=== PATIENT | male | born 1965 | race Caucasian/White ===

== ENCOUNTER 2020-04-27 17:23 | Inpatient (IN) ==
[2020-04-27] MEDS ORDERED: Naloxone 0.4 MG/ML INJ IVP PRN (20:41)
[2020-04-27] MEDS ORDERED: Ondansetron 4 MG/2 ML VIAL IVP PRN (20:41)
[2020-04-27] MEDS ORDERED: *HR* Heparin 5,000 UNIT/ML VIAL IVP ONE (20:46)
[2020-04-27] MEDS ORDERED: *HR* LORazepam 2 MG/ML VIAL IVP ONE (22:06)
[2020-04-27 22:09] LABS: Basophils # 0.1 K/mcL (0.0-0.2); Basophils % 0.3 %; Eosinophils # 0.1 K/mcL (0.0-0.6); Eosinophils % 0.3 %; Hematocrit 27.9 % (37.5-50.1); Hemoglobin 8.4 g/dL (12.9-16.9); Immature Granulocytes % 0.9 % (0-4); Lymphocytes # 2.9 K/mcL (0.6-4.6); Lymphocytes % 11.7 %; Mean Corpuscular HGB Conc 30.1 g/dL (31.6-35.5); Mean Corpuscular Hemoglobin 24.4 pg (28.0-33.3); Mean Platelet Volume 10.8 fL (9.4-12.4); Monocytes # 0.9 K/mcL (0.0-1.3); Monocytes % 3.7 %; Neutrophils # 20.4 K/mcL (1.6-8.9); Platelet Count 259 K/mcL (140-400); Red Blood Count 3.44 M/mcL (4.19-5.50); Red Cell Distribution Width 17.2 % (11.5-14.5); Segmented Neutrophils % 83.1 %; White Blood Count 24.6 K/mcL (4.3-11.1)
[2020-04-27 22:13] LABS: Mean Corpuscular Volume 81.1 fL (83.0-100.0)
[2020-04-27 22:15] LABS: INR 1.5; Prothrombin Time 17.3 Seconds (9.4-12.1)
[2020-04-27] MEDS: Heparin 25,000UNIT/250ML 1/2NS 25,000 UNIT/250 ML IV.SOLN IVC SCH (22:27)
[2020-04-27 22:31] LABS: Troponin I < 0.03 ng/mL (< 0.04)
[2020-04-27 22:39] LABS: C-Reactive Protein 144 mg/L (Less than 10); Chol/HDL Ratio 5.8 (0-4.9); Cholesterol 105 mg/dL (< 200); HDL Cholesterol 18 mg/dL (40-59); LDL Cholesterol,Calculated 66 mg/dL (< 100); Triglycerides 105 mg/dL (< 150)
[2020-04-27] MEDS: Nicotine 21 MG PATCH.TD24 TD SCH (22:40)
[2020-04-27] MEDS ORDERED: Ipratropium/Albuterol Neb 3 ML IH PRN (23:17)
[2020-04-27] MEDS ORDERED: Gabapentin 300 MG CAPSULE PO SCH (23:45)
[2020-04-27] MEDS ORDERED: Gabapentin 300 MG CAPSULE PO PRN (23:52)
[2020-04-27] MEDS ORDERED: Acetaminophen 325 MG TABLET PO PRN (23:54)
[2020-04-28] MEDS ORDERED: *HR* HYDROmorphone (PF) 1 MG/ML SYRINGE IVP PRN (00:06)
[2020-04-28] MEDS: Melatonin 3 MG TABLET PO PRN (01:04)
[2020-04-28 03:38] LABS: Hematocrit 25.7 % (37.5-50.1)
[2020-04-28 03:44] LABS: Bilirubin,Urine Negative (Negative); Blood,Urine Negative (Negative); Clarity,Urine Clear (Clear); Color,Urine Light-Yellow (Yellow); Glucose,Urine (UA) Normal (Normal); Ketones,Urine Negative (Negative); Leukocyte Esterase,Urine Negative (Negative); Nitrite,Urine Negative (Negative); PH,Urine 6.5 pH Units (5.0-8.0); Protein,Urine Negative (Neg-Trace); Specific Gravity,Urine 1.016 (1.010-1.025); Urobilinogen,Urine Normal (Normal)
[2020-04-28 04:00] LABS: Alanine Aminotransferase 28 Units/L (7-52); Albumin 3.2 g/dL (3.5-5.7); Alkaline Phosphatase 68 Units/L (34-104); Aspartate Amino Transferase 16 Units/L (13-39); BUN/Creatinine Ratio 22 (6-26); Bilirubin,Total 0.6 mg/dL (0.3-1.0); Blood Urea Nitrogen 12 mg/dL (6-20); Calcium 8.8 mg/dL (8.6-10.3); Carbon Dioxide 26 mEq/L (23-29); Chloride 90 mEq/L (98-107); Globulin 3.3 g/dL (2.4-3.5); Glucose 100 mg/dL (70-105); Osmolality,Calculated 266 (280-300); Potassium 3.5 mEq/L (3.5-5.1); Sodium 128 mEq/L (136-145); Total Protein 6.5 g/dL (6.4-8.9); eGFR For African Americans > 60 (> 60); eGFR For Non-African Americans > 60 (> 60)
[2020-04-28] MEDS: *HR* Heparin 5,000 UNIT/ML VIAL IVP PRN ×2 (04:12→11:45)
[2020-04-28] MEDS ORDERED: 0.9 % Sodium Chloride 1,000 ML IVC ONE (04:49)
[2020-04-28] MEDS ORDERED: Trolamine Salicylate/Aloe Vera 85 APPL/85 GM TUBE TP PRN (07:36)
[2020-04-28] MEDS ORDERED: *HR* HYDROcodone/Acet 10/325 mg TABLET PO PRN (07:36)
[2020-04-28] MEDS ORDERED: Perflutren Lipid Microsphere 1.3 ML in 0.9 % Sodium Chloride 8.7 ML IVP PRN (07:42)
[2020-04-28] MEDS: Piperacillin/Tazobactam 3.375 GM in 0.9 % Sodium Chloride Mini Bag 100 ML IVPB SCH ×3 (08:38→23:50)
[2020-04-28] MEDS: Gabapentin 300 MG CAPSULE PO SCH ×3 (08:39→20:33)
[2020-04-28] MEDS: Nicotine 21 MG PATCH.TD24 TD SCH (08:39)
[2020-04-28] MEDS: Baclofen 10 MG TABLET PO SCH ×2 (08:39→20:33)
[2020-04-28 10:27] LABS: Basophils % 0.2 %; Eosinophils # 0.1 K/mcL (0.0-0.6); Eosinophils % 0.6 %; Hematocrit 25.8 % (37.5-50.1); Hemoglobin 7.6 g/dL (12.9-16.9); Immature Granulocytes % 0.9 % (0-4); Lymphocytes % 15.4 %; Mean Corpuscular HGB Conc 29.5 g/dL (31.6-35.5); Mean Corpuscular Hemoglobin 24.1 pg (28.0-33.3); Mean Corpuscular Volume 81.9 fL (83.0-100.0); Mean Platelet Volume 11.1 fL (9.4-12.4); Monocytes # 0.9 K/mcL (0.0-1.3); Monocytes % 4.6 %; Neutrophils # 15.2 K/mcL (1.6-8.9); Platelet Count 253 K/mcL (140-400); Red Blood Count 3.15 M/mcL (4.19-5.50); Red Cell Distribution Width 17.1 % (11.5-14.5); Segmented Neutrophils % 78.3 %; White Blood Count 19.3 K/mcL (4.3-11.1)
[2020-04-28 10:47] LABS: % Iron Saturation 7 % (20-55); Iron 12 mcg/dL (65-175); Transferrin 121 mg/dL (203-362)
[2020-04-28] MEDS ORDERED: *HR* OxyCODONE/APAP 5/325 TABLET PO PRN (10:47)
[2020-04-28 11:06] LABS: Ferritin 718 ng/mL (20-250)
[2020-04-28 11:11] LABS: Folate 8.9 ng/mL (3.0-16.0)
[2020-04-28] MEDS: *HR* LORazepam 0.5 MG TABLET PO PRN (11:46)
[2020-04-28] MEDS: Sodium Ferric Gluconat/Sucrose 125 MG in 0.9 % Sodium Chloride 100 ML IVPB SCH (12:34)
[2020-04-28] MEDS: *HR* HYDROmorphone (PF) 1 MG/ML SYRINGE IVP PRN ×3 (12:34→22:33)
[2020-04-28] MEDS ORDERED: Dexamethasone 4 MG/ML VIAL IVP ONE (12:37)
[2020-04-28] MEDS: Nicotine 2 MG GUM BC PRN (12:47)
[2020-04-28] MEDS ORDERED: *HR* FentaNYL (PF) 100 MCG/2 ML VIAL ONE (14:40)
[2020-04-28] MEDS ORDERED: *HR* Midazolam HCl 2 MG/2 ML VIAL ONE (14:40)
[2020-04-28] MEDS ORDERED: *HR* Midazolam HCl 2 MG/2 ML VIAL IVP ONE (14:42)
[2020-04-28] MEDS ORDERED: *HR* FentaNYL (PF) 100 MCG/2 ML VIAL IVP ONE (14:42)
[2020-04-28 14:50] LABS: Estimated Average Glucose 134 mg/dl
[2020-04-28] MEDS: *HR* OxyCODONE/APAP 10/325 TABLET PO SCH ×2 (17:26→23:50)
[2020-04-28] MEDS: dexAMETHasone 4 MG TABLET PO SCH (20:33)
[2020-04-28] MEDS ORDERED: Gadolinium Contrast Agent (WT Based) IV PRN (21:14)
[2020-04-28] MEDS ORDERED: Isovue-370 500 ML BOTTLE IVP ONE (21:14)
[2020-04-29] MEDS: Heparin 25,000UNIT/250ML 1/2NS 25,000 UNIT/250 ML IV.SOLN IVC SCH ×2 (00:50→16:51)
[2020-04-29 01:38] LABS: Hematocrit 29.3 % (37.5-50.1); Hemoglobin 8.6 g/dL (12.9-16.9); Mean Corpuscular HGB Conc 29.4 g/dL (31.6-35.5); Mean Corpuscular Hemoglobin 24.6 pg (28.0-33.3); Mean Platelet Volume 10.6 fL (9.4-12.4); Platelet Count 280 K/mcL (140-400); Red Blood Count 3.49 M/mcL (4.19-5.50); White Blood Count 13.5 K/mcL (4.3-11.1)
[2020-04-29] MEDS: *HR* Heparin 5,000 UNIT/ML VIAL IVP PRN (01:55)
[2020-04-29 02:03] LABS: BUN/Creatinine Ratio 27 (6-26); Blood Urea Nitrogen 14 mg/dL (6-20); Calcium 8.6 mg/dL (8.6-10.3); Carbon Dioxide 27 mEq/L (23-29); Chloride 100 mEq/L (98-107); Glucose 127 mg/dL (70-105); Osmolality,Calculated 286 (280-300); Potassium 4.4 mEq/L (3.5-5.1); Sodium 137 mEq/L (136-145); eGFR For African Americans > 60 (> 60); eGFR For Non-African Americans > 60 (> 60)
[2020-04-29] MEDS: *HR* HYDROmorphone (PF) 1 MG/ML SYRINGE IVP PRN ×3 (03:10→08:02)
[2020-04-29] MEDS ORDERED: Gadolinium Contrast Agent (WT Based) IV PRN (05:25)
[2020-04-29] MEDS: *HR* OxyCODONE/APAP 10/325 TABLET PO SCH (05:29)
[2020-04-29] MEDS: *HR* LORazepam 0.5 MG TABLET PO PRN (05:54)
[2020-04-29] MEDS: Nicotine 2 MG GUM BC PRN (05:55)
[2020-04-29] MEDS: Baclofen 10 MG TABLET PO SCH ×2 (08:06→20:10)
[2020-04-29] MEDS: Nicotine 21 MG PATCH.TD24 TD SCH (08:06)
[2020-04-29] MEDS: Gabapentin 300 MG CAPSULE PO SCH ×3 (08:06→20:10)
[2020-04-29] MEDS: Piperacillin/Tazobactam 3.375 GM in 0.9 % Sodium Chloride Mini Bag 100 ML IVPB SCH ×2 (08:07→16:51)
[2020-04-29] MEDS: dexAMETHasone 4 MG TABLET PO SCH ×2 (08:08→20:10)
[2020-04-29] MEDS ORDERED: *HR* HYDROmorphone 2 MG/ML SYRINGE IVP STA (08:54)
[2020-04-29] MEDS ORDERED: *HR* HYDROmorphone (PF) 1 MG/ML SYRINGE IVP PRN (08:57)
[2020-04-29] MEDS ORDERED: dexAMETHasone 4 MG TABLET PO SCH (09:00)
[2020-04-29] MEDS ORDERED: Calcitonin-Salmon, Synthetic 400 UNIT/2 ML VIAL IM ONE (10:00)
[2020-04-29] MEDS ORDERED: Gabapentin 300 MG CAPSULE PO ONE (10:07)
[2020-04-29] MEDS ORDERED: *HR* HYDROmorphone 20 MG/20 ML PCA IVC PRN (10:10)
[2020-04-29] MEDS ORDERED: *HR* FentaNYL PATCH 50 MCG PATCH TD SCH (10:15)
[2020-04-29] MEDS: Sodium Ferric Gluconat/Sucrose 125 MG in 0.9 % Sodium Chloride 100 ML IVPB SCH (10:24)
[2020-04-29] MEDS ORDERED: *HR* HYDROmorphone (PF) 1 MG/ML SYRINGE IVP STA (10:34)
[2020-04-29] MEDS: 0.9 % Sodium Chloride 500 ML IVC SCH (12:48)
[2020-04-29] MEDS: *HR* HYDROmorphone 20 MG/20 ML PCA IVC PRN ×2 (14:36→21:09)
[2020-04-29] MEDS ORDERED: Zoledronic Acid (Zometa) 4 MG in 0.9 % Sodium Chloride 100 ML IV ONE (16:05)
[2020-04-30] MEDS: Piperacillin/Tazobactam 3.375 GM in 0.9 % Sodium Chloride Mini Bag 100 ML IVPB SCH ×3 (00:39→18:03)
[2020-04-30 04:54] LABS: Basophils % 0.1 %; Hemoglobin 8.3 g/dL (12.9-16.9)
[2020-04-30 04:56] LABS: Hematocrit 28.1 % (37.5-50.1); Immature Granulocytes % 1.8 % (0-4); Lymphocytes # 2.3 K/mcL (0.6-4.6); Lymphocytes % 8.3 %; Mean Corpuscular HGB Conc 29.5 g/dL (31.6-35.5); Mean Corpuscular Hemoglobin 24.9 pg (28.0-33.3); Mean Corpuscular Volume 84.1 fL (83.0-100.0); Mean Platelet Volume 10.7 fL (9.4-12.4); Monocytes # 0.8 K/mcL (0.0-1.3); Monocytes % 3.1 %; Platelet Count 318 K/mcL (140-400); Red Blood Count 3.34 M/mcL (4.19-5.50); Red Cell Distribution Width 17.2 % (11.5-14.5); Segmented Neutrophils % 86.7 %; White Blood Count 27.1 K/mcL (4.3-11.1)
[2020-04-30 04:59] LABS: Neutrophils # 23.5 K/mcL (1.6-8.9)
[2020-04-30 05:11] LABS: BUN/Creatinine Ratio 32 (6-26); Blood Urea Nitrogen 14 mg/dL (6-20); Calcium 8.4 mg/dL (8.6-10.3); Carbon Dioxide 24 mEq/L (23-29); Chloride 99 mEq/L (98-107); Glucose 113 mg/dL (70-105); Magnesium 2.3 mg/dL (1.6-2.6); Osmolality,Calculated 277 (280-300); Phosphorous 2.8 mg/dL (2.7-4.5); Potassium 4.7 mEq/L (3.5-5.1); Sodium 133 mEq/L (136-145); eGFR For African Americans > 60 (> 60); eGFR For Non-African Americans > 60 (> 60)
[2020-04-30] MEDS: Gabapentin 300 MG CAPSULE PO SCH ×3 (07:37→20:25)
[2020-04-30] MEDS: dexAMETHasone 4 MG TABLET PO SCH ×2 (07:38→20:25)
[2020-04-30] MEDS: Baclofen 10 MG TABLET PO SCH ×2 (07:38→20:25)
[2020-04-30] MEDS: Nicotine 21 MG PATCH.TD24 TD SCH (07:38)
[2020-04-30] MEDS: Heparin 25,000UNIT/250ML 1/2NS 25,000 UNIT/250 ML IV.SOLN IVC SCH (08:29)
[2020-04-30] MEDS ORDERED: *HR* HYDROmorphone (PF) 1 MG/ML SYRINGE IVP PRN (09:51)
[2020-04-30] MEDS ORDERED: Isovue-370 500 ML BOTTLE IVP ONE ×2 (11:16→17:49)
[2020-04-30] MEDS: *HR* LORazepam 0.5 MG TABLET PO PRN ×2 (11:30→15:38)
[2020-04-30] MEDS: *HR* HYDROmorphone 20 MG/20 ML PCA IVC PRN ×2 (11:31→20:25)
[2020-04-30] MEDS: Sodium Ferric Gluconat/Sucrose 125 MG in 0.9 % Sodium Chloride 100 ML IVPB SCH (13:19)
[2020-04-30] MEDS: 0.9 % Sodium Chloride 500 ML IVC SCH (13:23)
[2020-04-30] MEDS: Melatonin 3 MG TABLET PO PRN (20:25)
[2020-05-01] MEDS: Piperacillin/Tazobactam 3.375 GM in 0.9 % Sodium Chloride Mini Bag 100 ML IVPB SCH ×2 (00:50→08:48)
[2020-05-01] MEDS: *HR* Heparin 5,000 UNIT/ML VIAL IVP PRN (01:20)
[2020-05-01 02:12] LABS: Basophils % 0.2 %; Hemoglobin 8.1 g/dL (12.9-16.9); Lymphocytes % 8.9 %; Mean Platelet Volume 10.8 fL (9.4-12.4)
[2020-05-01 02:14] LABS: Hematocrit 27.6 % (37.5-50.1); Immature Granulocytes % 3.4 % (0-4); Lymphocytes # 1.9 K/mcL (0.6-4.6); Mean Corpuscular HGB Conc 29.3 g/dL (31.6-35.5); Mean Corpuscular Hemoglobin 25.4 pg (28.0-33.3); Mean Corpuscular Volume 86.5 fL (83.0-100.0); Monocytes # 0.8 K/mcL (0.0-1.3); Monocytes % 3.5 %; Platelet Count 308 K/mcL (140-400); Red Blood Count 3.19 M/mcL (4.19-5.50); Red Cell Distribution Width 16.9 % (11.5-14.5); White Blood Count 21.6 K/mcL (4.3-11.1)
[2020-05-01 02:15] LABS: Neutrophils # 18.1 K/mcL (1.6-8.9)
[2020-05-01] MEDS: *HR* LORazepam 0.5 MG TABLET PO PRN ×3 (02:18→17:35)
[2020-05-01 02:32] LABS: Platelet Estimate Normal (Normal)
[2020-05-01 02:33] LABS: BUN/Creatinine Ratio 28 (6-26); Blood Urea Nitrogen 12 mg/dL (6-20); Carbon Dioxide 26 mEq/L (23-29); Chloride 97 mEq/L (98-107); Glucose 91 mg/dL (70-105); Magnesium 2.5 mg/dL (1.6-2.6); Osmolality,Calculated 275 (280-300); Phosphorous 2.5 mg/dL (2.7-4.5); Potassium 4.2 mEq/L (3.5-5.1); Sodium 133 mEq/L (136-145); eGFR For African Americans > 60 (> 60); eGFR For Non-African Americans > 60 (> 60)
[2020-05-01] MEDS: Sodium Ferric Gluconat/Sucrose 125 MG in 0.9 % Sodium Chloride 100 ML IVPB SCH (08:48)
[2020-05-01] MEDS: Gabapentin 300 MG CAPSULE PO SCH ×3 (08:50→21:17)
[2020-05-01] MEDS: polyethylene glycoL 3350 17 GM POWD.PACK PO SCH (08:50)
[2020-05-01] MEDS: Nicotine 21 MG PATCH.TD24 TD SCH (08:50)
[2020-05-01] MEDS: dexAMETHasone 4 MG TABLET PO SCH ×2 (08:51→21:16)
[2020-05-01] MEDS: Baclofen 10 MG TABLET PO SCH ×2 (08:51→21:16)
[2020-05-01] MEDS: Sennosides 8.6 MG TABLET PO SCH (08:51)
[2020-05-01] MEDS: *HR* HYDROmorphone 20 MG/20 ML PCA IVC PRN ×2 (09:10→21:21)
[2020-05-01 09:30] LABS: POC Creatinine Result 1.4 mg/dL (0.60-1.30)
[2020-05-01] MEDS: 0.9 % Sodium Chloride 500 ML IVC SCH (14:13)
[2020-05-02] MEDS: *HR* LORazepam 0.5 MG TABLET PO PRN ×2 (02:33→15:47)
[2020-05-02] MEDS ORDERED: Haloperidol Lactate 5 MG/ML VIAL IVP ONE (03:37)
[2020-05-02 06:10] LABS: Hemoglobin 8.1 g/dL (12.9-16.9); Mean Platelet Volume 10.3 fL (9.4-12.4)
[2020-05-02 06:11] LABS: Hematocrit 27.5 % (37.5-50.1); Mean Corpuscular HGB Conc 29.5 g/dL (31.6-35.5); Mean Corpuscular Hemoglobin 25.5 pg (28.0-33.3); Mean Corpuscular Volume 86.5 fL (83.0-100.0); Platelet Count 287 K/mcL (140-400); Red Blood Count 3.18 M/mcL (4.19-5.50); Red Cell Distribution Width 17.2 % (11.5-14.5); White Blood Count 18.9 K/mcL (4.3-11.1)
[2020-05-02 06:28] LABS: BUN/Creatinine Ratio 28 (6-26); Blood Urea Nitrogen 11 mg/dL (6-20); Calcium 7.9 mg/dL (8.6-10.3); Carbon Dioxide 26 mEq/L (23-29); Chloride 101 mEq/L (98-107); Glucose 116 mg/dL (70-105); Magnesium 2.4 mg/dL (1.6-2.6); Osmolality,Calculated 278 (280-300); Phosphorous 2.3 mg/dL (2.7-4.5); Potassium 4.2 mEq/L (3.5-5.1); Sodium 134 mEq/L (136-145); eGFR For African Americans > 60 (> 60); eGFR For Non-African Americans > 60 (> 60)
[2020-05-02 06:44] LABS: Anisocytosis 1+ (Not Present); Hypochromasia Present (Not Present); Microcytosis Present (Not Present); Monocytes # 0.8 K/mcL (0.0-1.3); Neutrophils # 15.1 K/mcL (1.6-8.9)
[2020-05-02 06:45] LABS: Platelet Estimate Normal (Normal)
[2020-05-02] MEDS: dexAMETHasone 4 MG TABLET PO SCH ×2 (07:53→20:06)
[2020-05-02] MEDS: polyethylene glycoL 3350 17 GM POWD.PACK PO SCH (07:53)
[2020-05-02] MEDS: Baclofen 10 MG TABLET PO SCH ×2 (07:53→20:06)
[2020-05-02] MEDS: Nicotine 21 MG PATCH.TD24 TD SCH (07:53)
[2020-05-02] MEDS: Gabapentin 300 MG CAPSULE PO SCH ×3 (07:53→20:06)
[2020-05-02] MEDS: Sennosides 8.6 MG TABLET PO SCH (07:56)
[2020-05-02] MEDS: Sodium Ferric Gluconat/Sucrose 125 MG in 0.9 % Sodium Chloride 100 ML IVPB SCH (08:23)
[2020-05-02] MEDS: *HR* HYDROmorphone 20 MG/20 ML PCA IVC PRN ×2 (09:25→18:47)
[2020-05-02] MEDS: *HR* FentaNYL PATCH 100 MCG PATCH TD SCH (11:17)
[2020-05-02] MEDS: Nicotine 2 MG GUM BC PRN (15:47)
[2020-05-02] MEDS: 0.9 % Sodium Chloride 500 ML IVC SCH (15:47)
[2020-05-02] MEDS: Heparin 25,000UNIT/250ML 1/2NS 25,000 UNIT/250 ML IV.SOLN IVC SCH ×2 (15:49→21:04)
[2020-05-03 01:46] LABS: Hematocrit 28.3 % (37.5-50.1); Hemoglobin 8.2 g/dL (12.9-16.9); Mean Corpuscular Volume 86.3 fL (83.0-100.0); Nucleated Red Blood Cells 0.1 /100 WBC (0); Platelet Count 287 K/mcL (140-400); Red Blood Count 3.28 M/mcL (4.19-5.50); Red Cell Distribution Width 17.7 % (11.5-14.5); White Blood Count 21.1 K/mcL (4.3-11.1)
[2020-05-03 02:04] LABS: BUN/Creatinine Ratio 36 (6-26); Blood Urea Nitrogen 14 mg/dL (6-20); Calcium 7.5 mg/dL (8.6-10.3); Carbon Dioxide 25 mEq/L (23-29); Chloride 101 mEq/L (98-107); Glucose 127 mg/dL (70-105); Magnesium 2.4 mg/dL (1.6-2.6); Osmolality,Calculated 278 (280-300); Phosphorous 1.8 mg/dL (2.7-4.5); Potassium 4.3 mEq/L (3.5-5.1); Sodium 133 mEq/L (136-145); eGFR For African Americans > 60 (> 60); eGFR For Non-African Americans > 60 (> 60)
[2020-05-03] MEDS: Heparin 25,000UNIT/250ML 1/2NS 25,000 UNIT/250 ML IV.SOLN IVC SCH ×2 (02:07→20:03)
[2020-05-03 02:18] LABS: Lymphocytes # 3.4 K/mcL (0.6-4.6); Monocytes # 0.8 K/mcL (0.0-1.3); Neutrophils # 16.9 K/mcL (1.6-8.9)
[2020-05-03] MEDS: *HR* HYDROmorphone 20 MG/20 ML PCA IVC PRN ×2 (05:21→20:02)
[2020-05-03] MEDS: *HR* LORazepam 0.5 MG TABLET PO PRN ×3 (06:45→22:31)
[2020-05-03] MEDS: Sennosides 8.6 MG TABLET PO SCH (09:34)
[2020-05-03] MEDS: Gabapentin 300 MG CAPSULE PO SCH ×3 (09:34→20:03)
[2020-05-03] MEDS: Sodium Ferric Gluconat/Sucrose 125 MG in 0.9 % Sodium Chloride 100 ML IVPB SCH (09:35)
[2020-05-03] MEDS: dexAMETHasone 4 MG TABLET PO SCH ×2 (09:35→20:08)
[2020-05-03] MEDS: Nicotine 21 MG PATCH.TD24 TD SCH (09:35)
[2020-05-03] MEDS: polyethylene glycoL 3350 17 GM POWD.PACK PO SCH (09:35)
[2020-05-03] MEDS: Baclofen 10 MG TABLET PO SCH ×2 (09:35→20:08)
[2020-05-03] MEDS: 0.9 % Sodium Chloride 500 ML IVC SCH (19:04)
[2020-05-03] MEDS: Sennosides/Docusate Sodium TABLET PO SCH (20:03)
[2020-05-04 06:50] LABS: Platelet Count 276 K/mcL (140-400); Red Cell Distribution Width 18.7 % (11.5-14.5)
[2020-05-04 06:52] LABS: Hematocrit 30.7 % (37.5-50.1); Mean Corpuscular HGB Conc 29.3 g/dL (31.6-35.5); Mean Corpuscular Hemoglobin 25.9 pg (28.0-33.3); Mean Corpuscular Volume 88.2 fL (83.0-100.0); Mean Platelet Volume 10.2 fL (9.4-12.4); Red Blood Count 3.48 M/mcL (4.19-5.50); White Blood Count 20.2 K/mcL (4.3-11.1)
[2020-05-04 06:53] LABS: BUN/Creatinine Ratio 31 (6-26); Blood Urea Nitrogen 13 mg/dL (6-20); Calcium 7.6 mg/dL (8.6-10.3); Carbon Dioxide 24 mEq/L (23-29); Chloride 103 mEq/L (98-107); Glucose 128 mg/dL (70-105); Magnesium 2.6 mg/dL (1.6-2.6); Osmolality,Calculated 280 (280-300); Phosphorous 2.5 mg/dL (2.7-4.5); Potassium 4.7 mEq/L (3.5-5.1); Sodium 134 mEq/L (136-145); eGFR For African Americans > 60 (> 60); eGFR For Non-African Americans > 60 (> 60)
[2020-05-04 07:27] LABS: Anisocytosis 1+ (Not Present); Hypochromasia Present (Not Present); Lymphocytes # 4.9 K/mcL (0.6-4.6); Monocytes # 0.4 K/mcL (0.0-1.3); Neutrophils # 14.1 K/mcL (1.6-8.9)
[2020-05-04 07:28] LABS: Platelet Estimate Normal (Normal); Reactive Lymphocytes Present (Not Present)
[2020-05-04] MEDS: *HR* HYDROmorphone 4 MG TABLET PO PRN ×4 (09:52→20:25)
[2020-05-04] MEDS: Gabapentin 300 MG CAPSULE PO SCH ×3 (09:52→20:25)
[2020-05-04] MEDS: Nicotine 21 MG PATCH.TD24 TD SCH (09:52)
[2020-05-04] MEDS: Sennosides/Docusate Sodium TABLET PO SCH ×2 (09:52→20:26)
[2020-05-04] MEDS: Sodium Ferric Gluconat/Sucrose 125 MG in 0.9 % Sodium Chloride 100 ML IVPB SCH (09:53)
[2020-05-04] MEDS: polyethylene glycoL 3350 17 GM POWD.PACK PO SCH (09:56)
[2020-05-04] MEDS: dexAMETHasone 4 MG TABLET PO SCH ×2 (09:58→20:31)
[2020-05-04] MEDS: *HR* LORazepam 0.5 MG TABLET PO PRN ×2 (09:58→16:08)
[2020-05-04] MEDS: Baclofen 10 MG TABLET PO SCH ×2 (09:58→20:31)
[2020-05-04] MEDS: Heparin 25,000UNIT/250ML 1/2NS 25,000 UNIT/250 ML IV.SOLN IVC SCH (10:01)
[2020-05-04] MEDS: 0.9 % Sodium Chloride 500 ML IVC SCH (10:15)
[2020-05-04] MEDS: *HR* HYDROmorphone (PF) 1 MG/ML SYRINGE IVP PRN (14:02)
[2020-05-04] MEDS: Apixaban 5 MG TABLET PO SCH ×2 (14:13→20:25)
[2020-05-05 01:44] LABS: Hematocrit 30.3 % (37.5-50.1); Hemoglobin 8.8 g/dL (12.9-16.9); Mean Corpuscular Hemoglobin 25.1 pg (28.0-33.3); Mean Corpuscular Volume 86.6 fL (83.0-100.0); Mean Platelet Volume 10.1 fL (9.4-12.4); Platelet Count 278 K/mcL (140-400); Red Cell Distribution Width 19.1 % (11.5-14.5); White Blood Count 23.5 K/mcL (4.3-11.1)
[2020-05-05] MEDS: *HR* HYDROmorphone (PF) 1 MG/ML SYRINGE IVP PRN ×2 (01:47→04:37)
[2020-05-05] MEDS: *HR* LORazepam 0.5 MG TABLET PO PRN ×2 (01:47→08:51)
[2020-05-05 01:57] LABS: BUN/Creatinine Ratio 41 (6-26); Blood Urea Nitrogen 15 mg/dL (6-20); Calcium 7.4 mg/dL (8.6-10.3); Carbon Dioxide 23 mEq/L (23-29); Chloride 102 mEq/L (98-107); Glucose 130 mg/dL (70-105); Magnesium 2.3 mg/dL (1.6-2.6); Osmolality,Calculated 277 (280-300); Potassium 4.8 mEq/L (3.5-5.1); Sodium 132 mEq/L (136-145); eGFR For African Americans > 60 (> 60); eGFR For Non-African Americans > 60 (> 60)
[2020-05-05 02:49] LABS: Lymphocytes # 2.4 K/mcL (0.6-4.6); Monocytes # 0.5 K/mcL (0.0-1.3); Neutrophils # 20.7 K/mcL (1.6-8.9)
[2020-05-05 02:50] LABS: Anisocytosis 1+ (Not Present); Platelet Estimate Normal (Normal); Polychromasia 1+ (Not Present)
[2020-05-05] MEDS: *HR* HYDROmorphone 4 MG TABLET PO PRN ×3 (03:19→13:16)
[2020-05-05] MEDS: Melatonin 3 MG TABLET PO PRN (03:20)
[2020-05-05] MEDS: Sennosides/Docusate Sodium TABLET PO SCH (08:50)
[2020-05-05] MEDS: Apixaban 5 MG TABLET PO SCH (08:51)
[2020-05-05] MEDS: dexAMETHasone 4 MG TABLET PO SCH (08:51)
[2020-05-05] MEDS: Nicotine 21 MG PATCH.TD24 TD SCH (08:51)
[2020-05-05] MEDS: Gabapentin 300 MG CAPSULE PO SCH (08:51)
[2020-05-05] MEDS: Baclofen 10 MG TABLET PO SCH (08:51)
[2020-05-05] MEDS: *HR* FentaNYL PATCH 100 MCG PATCH TD SCH (08:52)
[2020-05-05] MEDS: 0.9 % Sodium Chloride 500 ML IVC SCH (08:54)
[2020-05-05] MEDS: polyethylene glycoL 3350 17 GM POWD.PACK PO SCH (09:01)
[2020-05-05 10:47] VITALS: BP 124/74
== END 2020-05-05 13:41 | disposition home or self-care (01) | DRG 853 ==
LOC: CDU → 2ANU 20:35
PROVIDERS: ADMIT Internal Medicine; ATTEND Internal Medicine

== ENCOUNTER 2020-05-16 02:15 | Inpatient (IN) ==
[2020-05-16] MEDS ORDERED: Ondansetron 4 MG/2 ML VIAL IVP PRN (06:18)
[2020-05-16] MEDS ORDERED: Naloxone 0.4 MG/ML INJ IVP PRN (06:18)
[2020-05-16] MEDS ORDERED: 0.9 % Sodium Chloride 1,000 ML IVC SCH (06:30)
[2020-05-16] MEDS ORDERED: *HR* HYDROmorphone (PF) 1 MG/ML SYRINGE IVP PRN (07:25)
[2020-05-16] MEDS ORDERED: *HR* HYDROmorphone 4 MG TABLET PO PRN (07:26)
[2020-05-16] MEDS ORDERED: *HR* FentaNYL PATCH 75 MCG PATCH TD SCH (07:30)
[2020-05-16] MEDS: *HR* LORazepam 1 MG TABLET PO PRN ×3 (08:26→21:38)
[2020-05-16] MEDS: dexAMETHasone 4 MG TABLET PO SCH ×2 (08:26→21:38)
[2020-05-16] MEDS ORDERED: *HR* Labetalol 20 MG/4 ML SYRINGE IVP PRN (08:28)
[2020-05-16] MEDS ORDERED: *HR* FentaNYL PATCH 100 MCG PATCH TD SCH (10:30)
[2020-05-16] MEDS: Apixaban 5 MG TABLET PO SCH ×2 (11:15→21:37)
[2020-05-16] MEDS: *HR* HYDROmorphone 20 MG/20 ML PCA IVC PRN (11:58)
[2020-05-16] MEDS: 0.9 % Sodium Chloride 500 ML IVC SCH (12:07)
[2020-05-16] MEDS: Gabapentin 300 MG CAPSULE PO SCH ×2 (16:06→21:37)
[2020-05-17] MEDS: *HR* LORazepam 1 MG TABLET PO PRN ×4 (03:38→21:16)
[2020-05-17 08:39] LABS: Red Cell Distribution Width 20.6 % (11.5-14.5)
[2020-05-17 08:40] LABS: Hematocrit 32.3 % (37.5-50.1); Hemoglobin 9.5 g/dL (12.9-16.9); Immature Platelets 11.2 % (1.1-6.1); Mean Corpuscular HGB Conc 29.4 g/dL (31.6-35.5); Mean Corpuscular Hemoglobin 25.1 pg (28.0-33.3); Mean Corpuscular Volume 85.2 fL (83.0-100.0); Mean Platelet Volume 11.7 fL (9.4-12.4); Platelet Count 145 K/mcL (140-400); Red Blood Count 3.79 M/mcL (4.19-5.50); White Blood Count 23.6 K/mcL (4.3-11.1)
[2020-05-17 08:58] LABS: BUN/Creatinine Ratio 39 (6-26); Blood Urea Nitrogen 13 mg/dL (6-20); Carbon Dioxide 25 mEq/L (23-29); Chloride 99 mEq/L (98-107); Glucose 120 mg/dL (70-105); Magnesium 2.1 mg/dL (1.6-2.6); Osmolality,Calculated 273 (280-300); Potassium 4.3 mEq/L (3.5-5.1); Sodium 131 mEq/L (136-145); eGFR For African Americans > 60 (> 60); eGFR For Non-African Americans > 60 (> 60)
[2020-05-17 09:01] LABS: Platelet Estimate Normal (Normal)
[2020-05-17 09:02] LABS: Neutrophils # 21.7 K/mcL (1.6-8.9); Segmented Neutrophils % 92.1 %
[2020-05-17 09:03] LABS: Basophils # 0.1 K/mcL (0.0-0.2); Basophils % 0.2 %; Lymphocytes # 0.7 K/mcL (0.6-4.6); Lymphocytes % 2.8 %; Monocytes # 0.6 K/mcL (0.0-1.3); Monocytes % 2.6 %
[2020-05-17] MEDS: Gabapentin 300 MG CAPSULE PO SCH ×3 (09:28→21:16)
[2020-05-17] MEDS: Sennosides 8.6 MG TABLET PO SCH (09:28)
[2020-05-17] MEDS: dexAMETHasone 4 MG TABLET PO SCH ×2 (09:28→21:16)
[2020-05-17] MEDS: Apixaban 5 MG TABLET PO SCH ×2 (09:28→21:16)
[2020-05-17 11:58] LABS: Albumin 3.2 g/dL (3.5-5.7); Albumin/Globulin Ratio 1.2 (1.1-2.2); Bilirubin,Direct 0.1 mg/dL (0.0-0.2); Bilirubin,Indirect 0.5 mg/dL (0.0-1.0); Bilirubin,Total 0.6 mg/dL (0.3-1.0); Globulin 2.6 g/dL (2.4-3.5); Total Protein 5.8 g/dL (6.4-8.9)
[2020-05-17] MEDS: Piperacillin/Tazobactam 3.375 GM in 0.9 % Sodium Chloride Mini Bag 100 ML IVPB SCH ×2 (12:39→18:39)
[2020-05-17] MEDS: 0.9 % Sodium Chloride 500 ML IVC SCH (16:28)
[2020-05-17] MEDS: *HR* HYDROmorphone 20 MG/20 ML PCA IVC PRN (17:04)
[2020-05-18] MEDS: *HR* LORazepam 1 MG TABLET PO PRN (03:32)
[2020-05-18] MEDS: Piperacillin/Tazobactam 3.375 GM in 0.9 % Sodium Chloride Mini Bag 100 ML IVPB SCH ×3 (03:32→20:01)
[2020-05-18] MEDS ORDERED: Nicotine 2 MG GUM BC PRN (07:28)
[2020-05-18 07:41] LABS: BUN/Creatinine Ratio 42 (6-26); Blood Urea Nitrogen 13 mg/dL (6-20); Calcium 7.6 mg/dL (8.6-10.3); Carbon Dioxide 26 mEq/L (23-29); Chloride 100 mEq/L (98-107); Glucose 201 mg/dL (70-105); Magnesium 1.9 mg/dL (1.6-2.6); Osmolality,Calculated 282 (280-300); Potassium 3.6 mEq/L (3.5-5.1); Sodium 133 mEq/L (136-145); eGFR For African Americans > 60 (> 60); eGFR For Non-African Americans > 60 (> 60)
[2020-05-18 07:48] LABS: % Iron Saturation 10 % (20-55); Iron 15 mcg/dL (65-175); Transferrin 109 mg/dL (203-362)
[2020-05-18 07:58] LABS: Ferritin 894 ng/mL (20-250)
[2020-05-18 08:04] LABS: Folate 3.8 ng/mL (3.0-16.0)
[2020-05-18 09:06] LABS: Lymphocytes % 3.3 %; Mean Corpuscular HGB Conc 30.2 g/dL (31.6-35.5)
[2020-05-18 09:08] LABS: Basophils % 0.2 %; Eosinophils % 0.2 %; Hematocrit 29.5 % (37.5-50.1); Hemoglobin 8.9 g/dL (12.9-16.9); Immature Granulocytes % 2.7 % (0-4); Immature Platelets 16.2 % (1.1-6.1); Lymphocytes # 0.7 K/mcL (0.6-4.6); Mean Corpuscular Hemoglobin 25.6 pg (28.0-33.3); Monocytes # 0.6 K/mcL (0.0-1.3); Monocytes % 3.1 %; Neutrophils # 17.8 K/mcL (1.6-8.9); Red Blood Count 3.47 M/mcL (4.19-5.50); Red Cell Distribution Width 20.2 % (11.5-14.5); Segmented Neutrophils % 90.5 %; White Blood Count 19.7 K/mcL (4.3-11.1)
[2020-05-18 09:52] LABS: Platelet Count 11 K/mcL (140-400)
[2020-05-18 09:53] LABS: Anisocytosis 1+ (Not Present); Hypochromasia Present (Not Present); Platelet Estimate Marked Decrease (Normal)
[2020-05-18] MEDS: Sennosides 8.6 MG TABLET PO SCH (10:50)
[2020-05-18] MEDS: dexAMETHasone 4 MG TABLET PO SCH ×2 (10:50→20:00)
[2020-05-18] MEDS: Nicotine 21 MG PATCH.TD24 TD SCH (10:51)
[2020-05-18] MEDS: Gabapentin 300 MG CAPSULE PO SCH ×3 (10:51→19:59)
[2020-05-18] MEDS: Baclofen 10 MG TABLET PO SCH ×2 (10:51→20:00)
[2020-05-18] MEDS: Apixaban 5 MG TABLET PO SCH (10:53)
[2020-05-18] MEDS: *HR* LORazepam 0.5 MG TABLET PO PRN ×2 (10:54→20:00)
[2020-05-18] MEDS ORDERED: *HR* FentaNYL PATCH 100 MCG PATCH TD SCH (11:48)
[2020-05-18] MEDS ORDERED: *HR* FentaNYL PATCH 50 MCG PATCH TD SCH (12:30)
[2020-05-18 12:55] LABS: Basophils % 0.2 %; Eosinophils # 0.1 K/mcL (0.0-0.6); Eosinophils % 0.6 %; Hematocrit 29.8 % (37.5-50.1); Hemoglobin 9.1 g/dL (12.9-16.9); INR 1.4; Immature Granulocytes % 3.1 % (0-4); Immature Platelets 14.5 % (1.1-6.1); Lymphocytes # 0.9 K/mcL (0.6-4.6); Mean Corpuscular HGB Conc 30.5 g/dL (31.6-35.5); Mean Corpuscular Hemoglobin 26.1 pg (28.0-33.3); Mean Corpuscular Volume 85.4 fL (83.0-100.0); Monocytes # 0.7 K/mcL (0.0-1.3); Monocytes % 3.1 %; Neutrophils # 19.2 K/mcL (1.6-8.9); Prothrombin Time 16.1 Seconds (9.4-12.1); Red Blood Count 3.49 M/mcL (4.19-5.50); Red Cell Distribution Width 20.4 % (11.5-14.5); White Blood Count 21.6 K/mcL (4.3-11.1)
[2020-05-18 12:58] LABS: Activated Partial Thrombo Time 26.7 Seconds (26.0-36.0)
[2020-05-18] MEDS: *HR* HYDROmorphone 20 MG/20 ML PCA IVC PRN ×2 (13:08→20:14)
[2020-05-18 13:25] LABS: Platelet Count 4 K/mcL (140-400)
[2020-05-18 13:26] LABS: Anisocytosis 1+ (Not Present); Platelet Estimate Marked Decrease (Normal)
[2020-05-18] MEDS ORDERED: Dexamethasone 4 MG/ML VIAL IVP ONE (14:27)
[2020-05-18 14:29] LABS: Lymphocytes % 4.2 %
[2020-05-18] MEDS ORDERED: 0.9 % Sodium Chloride 250 ML IVC SCH (14:30)
[2020-05-18 14:31] LABS: Basophils % 0.2 %; Eosinophils # 0.1 K/mcL (0.0-0.6); Eosinophils % 0.6 %; Hematocrit 30.5 % (37.5-50.1); Hemoglobin 8.9 g/dL (12.9-16.9); Immature Platelets 17.8 % (1.1-6.1); Mean Corpuscular HGB Conc 29.2 g/dL (31.6-35.5); Mean Corpuscular Hemoglobin 25.1 pg (28.0-33.3); Mean Corpuscular Volume 86.2 fL (83.0-100.0); Monocytes # 0.5 K/mcL (0.0-1.3); Monocytes % 2.7 %; Neutrophils # 17.9 K/mcL (1.6-8.9); Red Blood Count 3.54 M/mcL (4.19-5.50); Red Cell Distribution Width 20.1 % (11.5-14.5); Segmented Neutrophils % 89.3 %
[2020-05-18 14:43] LABS: Lymphocytes # 0.8 K/mcL (0.6-4.6)
[2020-05-18 14:46] LABS: Platelet Count 5 K/mcL (140-400)
[2020-05-18 15:01] LABS: Anisocytosis 1+ (Not Present); Platelet Estimate Marked Decrease (Normal)
[2020-05-18 15:03] LABS: Toxic Granulation Present (Not Present)
[2020-05-18] MEDS ORDERED: 0.9 % Sodium Chloride 250 ML ONE (16:22)
[2020-05-18] MEDS: 0.9 % Sodium Chloride 500 ML IVC SCH (20:03)
[2020-05-18 21:52] LABS: Basophils % 0.2 %; Hemoglobin 7.9 g/dL (12.9-16.9)
[2020-05-18 21:54] LABS: Eosinophils % 0.1 %; Immature Granulocytes % 4.3 % (0-4); Lymphocytes # 0.4 K/mcL (0.6-4.6); Lymphocytes % 2.3 %; Mean Corpuscular HGB Conc 30.4 g/dL (31.6-35.5); Mean Corpuscular Hemoglobin 25.7 pg (28.0-33.3); Mean Corpuscular Volume 84.7 fL (83.0-100.0); Mean Platelet Volume 10.6 fL (9.4-12.4); Monocytes # 0.3 K/mcL (0.0-1.3); Monocytes % 1.4 %; Neutrophils # 16.1 K/mcL (1.6-8.9); Red Blood Count 3.07 M/mcL (4.19-5.50); Red Cell Distribution Width 20.2 % (11.5-14.5); Segmented Neutrophils % 91.7 %; White Blood Count 17.5 K/mcL (4.3-11.1)
[2020-05-18 21:55] LABS: Platelet Count 40 K/mcL (140-400)
[2020-05-19] MEDS: *HR* LORazepam 0.5 MG TABLET PO PRN ×3 (02:00→21:01)
[2020-05-19 05:24] LABS: Basophils % 0.2 %; Eosinophils % 0.1 %; Lymphocytes % 3.2 %; Red Cell Distribution Width 20.3 % (11.5-14.5)
[2020-05-19 05:26] LABS: Hematocrit 30.5 % (37.5-50.1); Immature Granulocytes % 4.7 % (0-4); Immature Platelets 9.9 % (1.1-6.1); Lymphocytes # 0.5 K/mcL (0.6-4.6); Mean Corpuscular HGB Conc 29.5 g/dL (31.6-35.5); Mean Corpuscular Hemoglobin 25.4 pg (28.0-33.3); Mean Corpuscular Volume 85.9 fL (83.0-100.0); Mean Platelet Volume 11.9 fL (9.4-12.4); Monocytes # 0.3 K/mcL (0.0-1.3); Monocytes % 1.8 %; Red Blood Count 3.55 M/mcL (4.19-5.50); White Blood Count 16.5 K/mcL (4.3-11.1)
[2020-05-19 05:28] LABS: Neutrophils # 14.9 K/mcL (1.6-8.9); Platelet Count 51 K/mcL (140-400)
[2020-05-19 05:44] LABS: BUN/Creatinine Ratio 41 (6-26); Blood Urea Nitrogen 12 mg/dL (6-20); Carbon Dioxide 27 mEq/L (23-29); Chloride 101 mEq/L (98-107); Glucose 136 mg/dL (70-105); Magnesium 1.8 mg/dL (1.6-2.6); Osmolality,Calculated 282 (280-300); Potassium 4.2 mEq/L (3.5-5.1); Sodium 135 mEq/L (136-145); eGFR For African Americans > 60 (> 60); eGFR For Non-African Americans > 60 (> 60)
[2020-05-19] MEDS: dexAMETHasone 4 MG TABLET PO SCH ×2 (08:48→21:01)
[2020-05-19] MEDS: Nicotine 21 MG PATCH.TD24 TD SCH (08:48)
[2020-05-19] MEDS: Sennosides 8.6 MG TABLET PO SCH (08:48)
[2020-05-19] MEDS: Gabapentin 300 MG CAPSULE PO SCH ×3 (08:48→21:01)
[2020-05-19] MEDS: Baclofen 10 MG TABLET PO SCH ×2 (08:49→21:01)
[2020-05-19] MEDS: FLUoxetine HCl Oral Soln 20 MG/5 ML UDC PO SCH (08:49)
[2020-05-19] MEDS ORDERED: Apixaban 5 MG TABLET PO SCH (09:00)
[2020-05-19] MEDS: Apixaban 5 MG TABLET PO SCH (09:33)
[2020-05-19] MEDS: Nystatin SUSP 5 ML UD.LIQ PO SCH ×2 (15:57→21:01)
[2020-05-19] MEDS: *HR* HYDROmorphone 20 MG/20 ML PCA IVC PRN (15:57)
[2020-05-19] MEDS: *HR* Heparin 5,000 UNIT/ML VIAL SQ SCH (17:37)
[2020-05-19] MEDS: 0.9 % Sodium Chloride 500 ML IVC SCH (19:12)
[2020-05-19] MEDS: OLANZapine 5 MG TAB.RAPDIS PO SCH (21:01)
[2020-05-20] MEDS ORDERED: Pegfilgrastim 6 MG/0.6 ML Delivery Kit SQ SCH
[2020-05-20] MEDS ORDERED: Famotidine 20 MG/2 ML VIAL IVP ONE
[2020-05-20] MEDS ORDERED: Fosaprepitant Dimeglumine 150 MG in 0.9 % Sodium Chloride 145 ML IVPB SCH
[2020-05-20] MEDS ORDERED: SODIUM CHLORIDE EXCEL BG 0.9% IV SCH
[2020-05-20] MEDS ORDERED: Prochlorperazine 10 MG/2 ML VIAL IVP PRN
[2020-05-20] MEDS ORDERED: SODIUM CHLORIDE 0.9% IV SCH ×2
[2020-05-20] MEDS ORDERED: Dexamethasone 10 MG/ML VIAL IVP ONE
[2020-05-20] MEDS ORDERED: Hydrocortisone Sodium Succ 100 MG/2 ML VIAL IVP PRN
[2020-05-20] MEDS ORDERED: PACLITAXEL IV SCH
[2020-05-20] MEDS ORDERED: CARBOPLATIN IV SCH
[2020-05-20] MEDS ORDERED: Fosaprepitant Dimeglumine 150 MG in 0.9 % Sodium Chloride 150 ML IVPB SCH
[2020-05-20] MEDS ORDERED: *HR* LORazepam 2 MG/ML VIAL IVP PRN
[2020-05-20] MEDS ORDERED: 0.9 % Sodium Chloride 500 ML IVC SCH
[2020-05-20] MEDS ORDERED: EPINEPHrine 1 MG/ML VIAL SQ PRN
[2020-05-20] MEDS ORDERED: PEMBROLIZUMAB IV SCH
[2020-05-20] MEDS: *HR* Heparin 5,000 UNIT/ML VIAL SQ SCH ×2 (05:34→19:58)
[2020-05-20 07:02] LABS: Mean Corpuscular Volume 87.6 fL (83.0-100.0)
[2020-05-20 07:03] LABS: Hematocrit 31.7 % (37.5-50.1); Hemoglobin 9.3 g/dL (12.9-16.9); Immature Platelets 7.6 % (1.1-6.1); Mean Corpuscular HGB Conc 29.3 g/dL (31.6-35.5); Mean Corpuscular Hemoglobin 25.7 pg (28.0-33.3); Mean Platelet Volume 11.4 fL (9.4-12.4); Red Blood Count 3.62 M/mcL (4.19-5.50); White Blood Count 16.7 K/mcL (4.3-11.1)
[2020-05-20 07:19] LABS: BUN/Creatinine Ratio 52 (6-26); Blood Urea Nitrogen 16 mg/dL (6-20); Calcium 7.9 mg/dL (8.6-10.3); Carbon Dioxide 27 mEq/L (23-29); Chloride 102 mEq/L (98-107); Glucose 106 mg/dL (70-105); Magnesium 1.8 mg/dL (1.6-2.6); Osmolality,Calculated 284 (280-300); Potassium 4.3 mEq/L (3.5-5.1); Sodium 136 mEq/L (136-145); eGFR For African Americans > 60 (> 60); eGFR For Non-African Americans > 60 (> 60)
[2020-05-20 07:21] LABS: Platelet Count 94 K/mcL (140-400)
[2020-05-20 08:04] LABS: Lymphocytes # 1.3 K/mcL (0.6-4.6)
[2020-05-20 08:05] LABS: Anisocytosis 1+ (Not Present); Platelet Estimate Decreased (Normal)
[2020-05-20] MEDS: Nicotine 21 MG PATCH.TD24 TD SCH (08:36)
[2020-05-20] MEDS: dexAMETHasone 4 MG TABLET PO SCH ×2 (08:38→19:57)
[2020-05-20] MEDS: Baclofen 10 MG TABLET PO SCH ×2 (08:38→23:08)
[2020-05-20] MEDS: Gabapentin 300 MG CAPSULE PO SCH ×3 (08:38→20:50)
[2020-05-20] MEDS: FLUoxetine HCl Oral Soln 20 MG/5 ML UDC PO SCH (08:39)
[2020-05-20] MEDS: Nystatin SUSP 5 ML UD.LIQ PO SCH ×4 (08:39→20:51)
[2020-05-20] MEDS: Sennosides 8.6 MG TABLET PO SCH ×2 (08:39→20:49)
[2020-05-20] MEDS ORDERED: *HR* FentaNYL PATCH 100 MCG PATCH TD SCH (12:00)
[2020-05-20] MEDS ORDERED: *HR* FentaNYL PATCH 50 MCG PATCH TD SCH (12:00)
[2020-05-20] MEDS ORDERED: *HR* HYDROmorphone 20 MG/20 ML PCA IVC PRN (13:52)
[2020-05-20] MEDS: 0.9 % Sodium Chloride 500 ML IVC SCH ×2 (14:57→23:35)
[2020-05-20] MEDS: OLANZapine 5 MG TAB.RAPDIS PO SCH (20:51)
[2020-05-20] MEDS ORDERED: Melatonin 3 MG TABLET PO SCH (21:00)
[2020-05-21 05:11] LABS: Hemoglobin 8.8 g/dL (12.9-16.9); Mean Corpuscular HGB Conc 29.3 g/dL (31.6-35.5); Mean Corpuscular Hemoglobin 25.5 pg (28.0-33.3); Mean Platelet Volume 10.9 fL (9.4-12.4); Platelet Count 120 K/mcL (140-400); Red Blood Count 3.45 M/mcL (4.19-5.50); Red Cell Distribution Width 20.7 % (11.5-14.5); White Blood Count 14.2 K/mcL (4.3-11.1)
[2020-05-21 05:27] LABS: BUN/Creatinine Ratio 56 (6-26); Blood Urea Nitrogen 18 mg/dL (6-20); Calcium 7.4 mg/dL (8.6-10.3); Carbon Dioxide 29 mEq/L (23-29); Chloride 103 mEq/L (98-107); Glucose 128 mg/dL (70-105); Osmolality,Calculated 290 (280-300); Potassium 4.2 mEq/L (3.5-5.1); Sodium 138 mEq/L (136-145); eGFR For African Americans > 60 (> 60); eGFR For Non-African Americans > 60 (> 60)
[2020-05-21 05:52] LABS: Lymphocytes # 0.9 K/mcL (0.6-4.6); Monocytes # 0.6 K/mcL (0.0-1.3); Neutrophils # 12.8 K/mcL (1.6-8.9)
[2020-05-21 05:53] LABS: Anisocytosis 1+ (Not Present); Platelet Estimate Decreased (Normal)
[2020-05-21] MEDS: *HR* Heparin 5,000 UNIT/ML VIAL SQ SCH ×2 (06:17→16:58)
[2020-05-21 06:50] VITALS: BP 119/68
[2020-05-21] MEDS ORDERED: SODIUM CHLORIDE 0.9% IVPB SCH ×4 (07:04→10:01)
[2020-05-21] MEDS ORDERED: HYDROMORPHONE IVPB SCH ×4 (07:04→10:01)
[2020-05-21] MEDS: Sennosides 8.6 MG TABLET PO SCH (08:35)
[2020-05-21] MEDS: Nystatin SUSP 5 ML UD.LIQ PO SCH ×3 (08:35→17:06)
[2020-05-21] MEDS: Gabapentin 300 MG CAPSULE PO SCH ×2 (08:35→14:55)
[2020-05-21] MEDS: Nicotine 21 MG PATCH.TD24 TD SCH (08:35)
[2020-05-21] MEDS: dexAMETHasone 4 MG TABLET PO SCH ×2 (08:35→17:06)
[2020-05-21] MEDS: FLUoxetine HCl Oral Soln 20 MG/5 ML UDC PO SCH (08:35)
[2020-05-21] MEDS: 0.9 % Sodium Chloride 500 ML IVC SCH (08:36)
[2020-05-21] MEDS: Baclofen 10 MG TABLET PO SCH (09:30)
[2020-05-21] MEDS ORDERED: *HR* HYDROmorphone (PF) 1 MG/ML SYRINGE IVP PRN (10:39)
[2020-05-23] MEDS ORDERED: HYDROMORPHONE IVC SCH
[2020-05-23] MEDS ORDERED: SODIUM CHLORIDE 0.9% IVC SCH
== END 2020-05-21 17:27 | disposition hospice, home (50) | DRG 947 ==
LOC: 3ANU → SUATTDRO 06:08 → 2ANU 16:01 → SUATTDRO 05-17 11:16 → 3ANU 05-19 19:02
PROVIDERS: ADMIT Student in an Organized Health Care Education/Training Program; ATTEND Internal Medicine